=== PATIENT | male | born 1940 | race Caucasian/White ===

== ENCOUNTER 2022-03-02 12:05 | Emergency (ER) | payer MEDICARE | END 2022-03-02 16:15 | disposition home or self-care (01) | LOC: FER 12:05 | DX: K94.23 Gastrostomy malfunction (principal); F03.90 Unspecified dementia, unspecified severity, without behavioral disturbance, psychotic disturbance, mood disturbance, and anxiety; Z86.73 Personal history of transient ischemic attack (TIA), and cerebral infarction without residual deficits | CPT/HCPCS: 74018; 96372; J1885 ==

== ENCOUNTER 2022-05-14 18:00 | Emergency (ER) | payer MEDICARE | END 2022-05-14 22:30 | disposition home or self-care (01) | LOC: FER 18:00 | DX: Z43.1 Encounter for attention to gastrostomy (principal); K59.00 Constipation, unspecified; Z88.0 Allergy status to penicillin | CPT/HCPCS: 74018 ==

== ENCOUNTER 2022-07-10 08:14 | Emergency (ER) | payer MEDICARE ==
[2022-07-10 09:22] LABS: BASOPHIL 0.3 % (0-2); EOSINOPHIL 6.7 % (0-7); HCT 19.5 % (42.0-52.0); LYMPHOCYTE 12.3 % (15-48); MCH 31.4 pg (25.0-31.0); MCHC 31.3 g/dL (32.0-36.0); MCV 100.5 fL (78.0-100.0); MONOCYTE 11.3 % (0-12); MPV 10.5 fL (6.0-9.5); NEUTROPHIL 69.1 % (41-80); NRBC 0; PLT 247 K/uL (150-400); RBC 1.94 M/uL (4.70-6.00); RDW 17.1 % (11.5-14.0); WBC 6.1 K/uL (4.0-10.5)
[2022-07-10 09:28] LABS: ALBUMIN 2.3 g/dL (3.4-5.0); BILIRUBIN - TOTAL 0.1 mg/dL (0.2-1.0); CREATININE 0.71 mg/dL (0.67-1.17); GLOBULIN (CALCULATION) 3.5 g/dL; POTASSIUM 4.7 mmol/L (3.5-5.1); TOTAL PROTEIN 5.8 g/dL (6.4-8.2)
[2022-07-10 09:40] LABS: HGB 6.1 g/dl (13.2-18.0)
== END 2022-07-11 01:30 | disposition home or self-care (01) ==
LOC: FER 08:14
PROVIDERS: Emergency Medicine
DX: C34.90 Malignant neoplasm of unspecified part of unspecified bronchus or lung (principal); D63.0 Anemia in neoplastic disease; I10 Essential (primary) hypertension; J44.9 Chronic obstructive pulmonary disease, unspecified; F03.90 Unspecified dementia, unspecified severity, without behavioral disturbance, psychotic disturbance, mood disturbance, and anxiety; Z86.73 Personal history of transient ischemic attack (TIA), and cerebral infarction without residual deficits; Z88.0 Allergy status to penicillin; Z87.891 Personal history of nicotine dependence; Z93.1 Gastrostomy status
CPT/HCPCS: 36415; 36430; 71045; 74018; 80053; 85025; 86850; 86900; 86901; 86922; 96374; J1940; J7040; P9016